=== PATIENT | female | born 1970 | race Caucasian/White ===

== ENCOUNTER 2018-01-24 14:42 | Inpatient (IN) ==
[2018-01-24 20:41] LABS: Baso # (Auto) 0.1 th/mm3 (0.0-0.2); Baso % (Auto) 0.5 % (0.0-2.0); Eos # (Auto) 0.1 th/mm3 (0.0-0.4); Hematocrit 48.7 % (35.0-46.0); Hemoglobin 16.5 gm/dL (11.6-15.3); Lymph % (Auto) 27.4 % (9.0-44.0); Mean Corpuscular HGB Conc 33.8 % (32.0-36.0); Mean Corpuscular Hemoglobin 31.8 pg (27.0-34.0); Mean Corpuscular Volume 93.9 fL (80.0-100.0); Mean Platelet Volume 7.8 fL (7.0-11.0); Mono # (Auto) 0.8 th/mm3 (0.0-0.9); Mono % (Auto) 7.2 % (0.0-8.0); Neut # (Auto) 6.9 th/mm3 (1.8-7.7); Neut % (Auto) 63.9 % (16.0-70.0); Platelet Count 339 th/mm3 (150-450); Red Blood Count 5.19 mil/mm3 (4.00-5.30); Red Cell Distribution Width 12.3 % (11.6-17.2); White Blood Count 10.8 th/mm3 (4.0-11.0)
--- NOTE | 2018-01-24 20:48 | ED ---
HPI General Chief complaint: Psychiatric Symptoms Stated complaint: psych eval Time Seen by Provider: 01/24/18 19:55 History of Present Illness HPI narrative: Patient is a 47 year old female presents to the ER for evaluation by psychiatrist. She is accompanied by her friend who states that she has been getting worse over the past few weeks. She has been seen by her psychiatrist and started on new SSRI and still has severe depression. Per her friend, she doesn't eat, she's lost 20 over the past few weeks. She apparently has not been functioning well at all. Her primary psychiatrist has also apparently recommended an inpatient psychiatric evaluation and she declined. Her friend urged her to come into the hospital after calling their psychiatrist today who made the recommendation. She denies any physical complaints, denies any CP/SOB/ABD pain/N/V/D/C/Fever/Chest pain. Related Data Home Medications Medication Instructions Recorded Confirmed alprazolam 0.25 mg PO BID 01/24/18 01/24/18 difluprednate [Durezol] 1 drp OPHTHALMIC (EYE) BID 01/24/18 01/24/18 doxycycline hyclate 100 mg PO BID 01/24/18 01/24/18 quetiapine See Label Instructions .ROUTE 01/24/18 01/24/18 .COMPLEX Allergies Allergy/AdvReac Type Severity Reaction Status Date / Time penicillin G Allergy Unknown Unverified 12/25/16 15:03 Review of Systems ROS: all other systems reviewed are negative [facility] Social History Social History Substance History: Unable to Obtain Smoking Status: Light tobacco smoker Tobacco Type: Cigarettes How Often Do You Have a Drink Containing Alcohol: Monthly or less Recent Travel in [facility] within the Last 8 Weeks: No Recent Out of Country Travel within the Last 8 Weeks: No Exam Narrative Exam Narrative: GENERAL: Well-developed thin female weepy. SKIN: Focused skin assessment warm/dry. HEAD: Atraumatic. Normocephalic. EYES: Pupils equal and round. No scleral icterus. Mild injection of the left sclera. Right sclera are clear. PERRLA ENT: No nasal bleeding or discharge. Mucous membranes pink and moist. NECK: Trachea midline. No JVD. CARDIOVASCULAR: Regular rate and rhythm. No murmur appreciated. RESPIRATORY: No accessory muscle use. Clear to auscultation. Breath sounds equal bilaterally. GASTROINTESTINAL: Abdomen soft, non-tender, nondistended. Hepatic and splenic margins not palpable. MUSCULOSKELETAL: No obvious deformities. No clubbing. No cyanosis. No edema. NEUROLOGICAL: Awake and alert. No obvious cranial nerve deficits. Motor grossly within normal limits. Normal speech. PSYCHIATRIC: Patient is a fair amount of insight, she appears depressed affect and depressed mood. Denies suicidal homicidal ideation currently but states she had thought about it in the past. She is fairly withdrawn as well, cries during the history. Course Initial Documented Vital Signs Temperature 98.1 F 01/24/18 14:45 Pulse Rate 99 H 01/24/18 14:45 Respiratory Rate 16 01/24/18 14:45 Blood Pressure 150/70 H 01/24/18 14:45 Pulse Oximetry 99 01/24/18 14:45 Last Documented Vital Signs Temperature 98.1 F 01/24/18 14:45 Pulse Rate 82 01/24/18 19:18 Respiratory Rate 18 01/24/18 19:18 Blood Pressure 154/79 H 01/24/18 19:18 Pulse Oximetry 99 01/24/18 19:18 Medical Decision Making MDM Narrative Medical decision making narrative: Patient room in the emergency department, her friend is quite worried about her, mom is arrived as well and the patient friend states that they do not get along well together. The patient asks if she can go home with her mother. Psychiatric labs have been drawn and sent. Currently patient is on voluntary status, will continue to reassess her throughout the night as she is always already stating that she wants to go home. I am concerned about this patient's well-being as withdrawn as she has been. She is depressed bordering on psychotic features as well. I have spoken with Kanchan for a psychiatric screening as well for this patient. As an aside the patient does have erythematous left conjunctival, she states she inadvertently splashed herself with hydrogen peroxide in the eye, she does have eyedrops that she has been taking for this. Durezol After labs returned I do not see any medical reason for the patient's symptoms, there is no other lab abnormality that needs emergent workup. She is medically cleared for psychiatric evaluation. Working closely with Rah, she is contacted psychiatrist senior environmental consultant who agrees patient needs admission his place admission orders. This was relayed to the patient, she quickly changes the subject. I do believe that she is unable and unwilling to make her own decisions at this time. I therefore placed her under Chance act. This appears to be depression with psychotic features. Medical Screen Exam Complete: Yes Emergency Medical Condition: Yes Lab Data Result diagrams: 01/24/18 20:30 01/24/18 20:30 POC Results POC Urine Results Negative Lab Results 01/24/18 01/24/18 01/24/18 Range/Units 20:30 20:30 21:24 WBC 10.8 (4.0-11.0) th/mm3 RBC 5.19 (4.00-5.30) mil/mm3 Hgb 16.5 H (11.6-15.3) gm/dL Hct 48.7 H (35.0-46.0) % MCV 93.9 (80.0-100.0) fL MCH 31.8 (27.0-34.0) pg MCHC 33.8 (32.0-36.0) % RDW 12.3 (11.6-17.2) % Plt Count 339 (150-450) th/mm3 MPV 7.8 (7.0-11.0) fL Neut % (Auto) 63.9 (16.0-70.0) % Lymph % (Auto) 27.4 (9.0-44.0) % [place] % (Auto) 7.2 (0.0-8.0) % Eos % (Auto) 1.0 (0.0-4.0) % Baso % (Auto) 0.5 (0.0-2.0) % Neut # (Auto) 6.9 (1.8-7.7) th/mm3 Lymph # (Auto) 3.0 (1.0-4.8) th/mm3 [place] # (Auto) 0.8 (0.0-0.9) th/mm3 Eos # (Auto) 0.1 (0.0-0.4) th/mm3 Baso # (Auto) 0.1 (0.0-0.2) th/mm3 WBC Differential . Differential Comment Auto diff final Sodium 139 (136-145) meq/L Potassium 3.9 (3.5-5.1) meq/L Chloride 104 (98-107) meq/L Carbon Dioxide 26.5 (21.0-32.0) meq/L Anion Gap 9 (5-15) meq/L BUN 10 (7-18) mg/dL Creatinine 0.85 (0.50-1.00) mg/dL Estimated GFR 72 L (>89) mL/min Random Glucose 106 (74-106) mg/dL Calcium 9.5 (8.5-10.1) mg/dL Total Bilirubin 0.4 (0.2-1.0) mg/dL AST 10 L (15-37) U/L ALT 28 (10-53) U/L Alkaline Phosphatase 65 (45-117) U/L Total Protein 8.2 (6.4-8.2) g/dL Albumin 4.5 (3.4-5.0) g/dL TSH 1.280 (0.358-3.740) uIU/mL Urine Opiates Screen Neg (Neg) Ur Barbiturates Screen Neg (Neg) Ur Amphetamines Screen Neg (Neg) U Benzodiazepines Scrn Pos H (Neg) Urine Cocaine Screen Neg (Neg) U Cannabinoids Screen Neg (Neg) Serum Alcohol Less than 3 (0-5) mg/dL Discharge Plan Discharge Disposition Patient Disposition: 30 Still Patient Discharge Details Diagnosis: Severe major depression with psychotic features Physicians Team ED Provider: Ethan Beasley Primary Care Provider: Ruben Bianchi Attending Provider: Gama Currie Status ED Status: Left Department Discharge Information Discharge Date/Time: 01/25/18 00:57
[2018-01-24 21:14] LABS: Albumin 4.5 g/dL (3.4-5.0); Anion Gap 9 meq/L (5-15); Aspartate Aminotransferase 10 U/L (15-37); Blood Urea Nitrogen 10 mg/dL (7-18); Calcium 9.5 mg/dL (8.5-10.1); Carbon Dioxide 26.5 meq/L (21.0-32.0); Chloride 104 meq/L (98-107); Glomerular Filtration Rate 72 mL/min (>89); Glucose,Random 106 mg/dL (74-106); Potassium 3.9 meq/L (3.5-5.1); Sodium 139 meq/L (136-145)
[2018-01-24 21:15] LABS: Alanine Aminotransferase 28 U/L (10-53)
[2018-01-24 21:24] LABS: Alkaline Phosphatase 65 U/L (45-117); Total Protein 8.2 g/dL (6.4-8.2)
[2018-01-24] MEDS ORDERED: LORazepam 1 MG Tablet PO ONE (21:37)
[2018-01-24 21:43] LABS: Amphetamine Screen,Urine Neg (Neg); Barbiturate Screen,Urine Neg (Neg); Cannabinoid Screen,Urine Neg (Neg); Cocaine Screen,Urine Neg (Neg)
[2018-01-24 21:54] LABS: Opiate Screen,Urine Neg (Neg)
[2018-01-25] MEDS ORDERED: Aluminum/Magnesium/Simethacone Susp 30 ML UDC PO PRN (01:46)
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
--- NOTE | 2018-01-25 15:40 | P.CONIM ---
History of Present Illness Requesting Physician: Gama Currie Reason for Consult: "medical management for eye issues. Patient instilled peroxide in both eyes Primary Care Provider: Ruben Bianchi MD History of Present Illness: This is a 47 year old female patient with a past medical history which includes anxiety/depression, fatigue, headaches, rheumatoid arthritis. Patient is currently in inpatient psychiatric center we have been consulted to assist with "medical management for eye issues. Patient instilled peroxide in both eyes." Patient does endorse that she accidentally splashed a small amount of OTC strength peroxide into both eyes approximately 1 week ago. Patient reports that she has seen outpatient optometry/ophthalmology Dr. Banda and was prescribed eyedrops but is unsure exactly which eyedrops. Patient reports her vision is, "about the same," she is able to read with her glasses on. Patient denies blurred vision, double vision or changes in vision since the incident. Patient denies fevers chills nausea vomiting diarrhea constipation shortness of breath or chest pain. Past medical history: anxiety/depression, fatigue, headaches, rheumatoid arthritis Past surgical history: Cervical surgery including LEEP and colposcopy 5, surgical repair of the foot, tonsillectomy and wrist surgery. 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 but quit, unable to tell exactly when she quit years ago Rare EtOH use Family history: Diabetes and memory loss Review of Systems All other systems reviewed negative except as stated in HPI [facility] - History History Provided By: Patient, Medical Record - Tobacco History Second Hand Smoke Exposure: No Tobacco Use In Past 30 Days: Yes Smoking Status: Light tobacco smoker Tobacco Type: Cigarettes - Alcohol History How Often Do You Have a Drink Containing Alcohol: Monthly or less - Substance Use History Substance History: No History of Abuse - Travel History Recent Travel in the [place] Within the Last 8 Weeks: No Recent Travel Out of the Country Within the Last 8 Weeks: No - Immunization History Tetanus Immunization: <5 Years Hx Influenza Vaccine This Season: No Medications and Allergies Allergies Allergy/AdvReac Type Severity Reaction Status Date / Time penicillin G Allergy Unknown Unverified 12/25/16 15:03 Active Medications: Active Medications Al Hydrox/Mg Hydrox/Simethicone (Mag-Al Plus Susp Liq) 30 ml PO Q6H PRN PRN Reason: DYSPEPSIA Al Hydroxide/Mg Hydroxide (Milk Of Magnesia Liq) 30 ml PO Q12H PRN PRN Reason: Mild Constipation Diphenhydramine HCl (Benadryl) 50 mg PO HS PRN PRN Reason: INSOMNIA Diphenhydramine HCl (Benadryl Inj) 50 mg IM HS PRN PRN Reason: INSOMNIA Doxycycline Hyclate (Vibratab) 100 mg PO BID [facility] Last Admin: 01/25/18 11:29 Dose: 100 mg Escitalopram Oxalate (Lexapro) 10 mg PO DAILY [facility] Hydroxyzine HCl (Atarax) 50 mg PO Q6H PRN PRN Reason: ANXIETY Ibuprofen (Motrin) 600 mg PO Q6H PRN PRN Reason: PAIN SCALE 1 TO 10 Patient Own Med- Difluprednate ( Durezol) Opth Drops 0.05% 0 each EACH EYE BID [facility] Exam Vital signs: Vital Signs 01/24/18 19:18 01/25/18 01:17 01/25/18 06:00 Temperature 97.8 F 97.9 F Pulse Rate 82 77 80 Respiratory Rate 18 20 22 Blood Pressure 154/79 H 97/52 L 102/52 L Pulse Oximetry 99 100 97 Intake & Output 01/24/18 01/25/18 01/25/18 18:59 06:59 18:59 Weight 55.338 kg 54.8 kg Other: Weight On Admission 54.8 kg Narrative: GENERAL: This is a well-nourished, well-developed patient, 47-year-old female patient EYES: Small subconjunctival hematoma noted left lower conjunctiva. No drainage or erythema noted to either eye CARDIOVASCULAR: Regular rate and rhythm RESPIRATORY: Clear to auscultation. Breath sounds equal bilaterally. GASTROINTESTINAL: Abdomen soft, non-tender, nondistended. Normal active bowel sounds MUSCULOSKELETAL: Extremities without clubbing, cyanosis, or edema. NEURO: Alert & Oriented. Moves all ext x4 Results - Labs CBC & Chem 7: 01/24/18 20:30 01/24/18 20:30 Labs: Laboratory Results - last 24 hr 01/24/18 01/24/18 01/24/18 20:30 20:30 21:24 WBC 10.8 RBC 5.19 Hgb 16.5 H Hct 48.7 H MCV 93.9 MCH 31.8 MCHC 33.8 RDW 12.3 Plt Count 339 MPV 7.8 Neut % (Auto) 63.9 Lymph % (Auto) 27.4 [place] % (Auto) 7.2 Eos % (Auto) 1.0 Baso % (Auto) 0.5 Neut # (Auto) 6.9 Lymph # (Auto) 3.0 [place] # (Auto) 0.8 Eos # (Auto) 0.1 Baso # (Auto) 0.1 WBC Differential . Differential Comment Auto diff final Sodium 139 Potassium 3.9 Chloride 104 Carbon Dioxide 26.5 Anion Gap 9 BUN 10 Creatinine 0.85 Estimated GFR 72 L Random Glucose 106 Calcium 9.5 Total Bilirubin 0.4 AST 10 L ALT 28 Alkaline Phosphatase 65 Total Protein 8.2 Albumin 4.5 TSH 1.280 Urine Opiates Screen Neg Ur Barbiturates Screen Neg Ur Amphetamines Screen Neg U Benzodiazepines Scrn Pos H Urine Cocaine Screen Neg U Cannabinoids Screen Neg Serum Alcohol Less than 3 Assessment and Plan - Assessment (1) Severe major depression with psychotic features Code(s): F32.3 - Major depressive disorder, single episode, severe with psychotic features Status: Acute Plan: Major depression with psychotic features management per psychiatric team History of peroxide exposure to bilateral eyes Patient does endorse that she accidentally splashed OTC strength peroxide into both eyes approximately 1 week ago. Patient reports that she has seen outpatient optometry/ophthalmology Dr. Banda and was prescribed eyedrops but is unsure exactly which eyedrops. Patient reports her vision is, "about the same, " she is able to read with her glasses on. Patient denies blurred vision, double vision or changes in vision since the incident. Patient unreliable nursing to please obtain records from outpatient optometry/ ophthalmology We will add Refresh Tears as needed for comfort Patient needs to follow-up with outpatient optometry/ophthalmology upon discharge Rheumatoid arthritis Patient follows with Dr. Caba outpatient does not take any medications for her RA follow-up outpatient rheumatology after discharge - Attending Attestation Patient examined. Assessment and plan formulated with Demetria BRUCE I agree with the above.
[2018-01-25] MEDS ORDERED: Carboxymethylcellulose 0.5% Opth Drops 15 ML Bottle EACH EYE PRN (21:00)
[2018-01-25] MEDS: DIFLUPREDNATE OPTH EACH EYE SCH (21:19)
[2018-01-25] MEDS: Escitalopram 10 MG Tablet PO SCH (21:31)
[2018-01-26] MEDS: Escitalopram 10 MG Tablet PO SCH (09:02)
[2018-01-26] MEDS: DIFLUPREDNATE OPTH EACH EYE SCH (09:05)
--- NOTE | 2018-01-26 14:18 | P.PNPSY ---
Subjective Chief Complaint: Severe depression with psychotic features; anxiety Remarks: Reviewed electronic medical records and discussed case with staff. Follow-up was conducted in dayroom with YAMILET Chapin. Patient is extremely anxious. She asked me if she needed a curing oven tender present to be able to have a conversation. She is preoccupied with her two sons (16 and 18 years of age). She is worried about missing a graduation. I secured her cell phone so that she could obtain her son' s cell number so that she can call him. Nursing staff report that patient has a very poor appetite. I encouraged her to eat and take in fluids and she agreed . She denies any thoughts of self harm. She is participating in groups and activities on the unit. Review of Systems All other systems reviewed negative except as stated in HPI Mental Status Examination Appearance: Appropriate Consciousness: Alert Orientation: x4 Motor Activity: Normal gait Speech: Hesitant, Slow Language: Adequate Fund of Knowledge: Adequate Attention and Concentration: Adequate Memory: Impaired Mood: Sad Affect: Sad Thought Process & Associations: Circumstantial Thought Content: Preoccupations Hallucination Type: None Delusion Type: None Suicidal Ideation: No (Denies today but had them in admission) Suicidal Plan: No Suicidal Intention: No Homicidal Ideation: No Homicidal Plan: No Homicidal Intention: No Insight: Fair Judgment: Impulsive Assessment and Plan - Assessment (1) Current severe episode of major depressive disorder with psychotic features Code(s): F32.3 - Major depressive disorder, single episode, severe with psychotic features Status: Acute - Plan Plan: Estimated LOS: [] days Patient is stable. Started on Lexapro. Will see psychiatrist on Saturday. Continue current plan of care. Justification for Continued Inpatient Stay: Moving patient to a less restrictive environment may result in her decompensation. Request Healthcare Surrogate/Guardian Advocate?: No
[2018-01-27] MEDS: Escitalopram 10 MG Tablet PO SCH (09:22)
--- NOTE | 2018-01-27 18:41 | P.PNPSY ---
Subjective Chief Complaint: Severe depression with psychotic features; anxiety Remarks: Patient seen for follow up; chart reviewed. Discussion with nursing staff reported that patient noted to be somewhat anxious about why discharge. Patient was found in blade on unit noted B, cooperative. Patient with history of depression, PTSD with current admission under Chance act for suicidal ideation in the context of recently having lost in her family. Patient reports that she had been feeling upset that she had lost family members as well as her children did not elaborate as to why. Patient admits to having suicidal ideation which her friend had brought her to the hospital for evaluation. Patient states that her friend brought her to the hospital she was not feeling like herself, noted to have multiple varied complaints about the unit some disorganization and preservative on having certain items such as her belongings , cell phone, condition and for hair. Patient reports being worried about being able to make payments online for her apartment and her children cell phone service. Patient denies any suicide ideations at this time denies any perceptional services but noted to be somewhat disorganized during interview. Patient was reported having poor sleep less evening. Review of Systems All other systems reviewed negative except as stated in HPI Mental Status Examination Appearance: Appropriate Consciousness: Alert Orientation: x4 Motor Activity: Normal gait Speech: Hesitant, Slow Language: Adequate Fund of Knowledge: Adequate Attention and Concentration: Adequate Memory: Impaired Mood: Sad Affect: Anxious Thought Process & Associations: Circumstantial, Disorganized (At times) Thought Content: Preoccupations Hallucination Type: None Delusion Type: None Suicidal Ideation: No (Denies today but had them in admission) Suicidal Plan: No Suicidal Intention: No Homicidal Ideation: No Homicidal Plan: No Homicidal Intention: No Insight: Fair Judgment: Impulsive Assessment and Plan - Assessment (1) Severe major depression with psychotic features Code(s): F32.3 - Major depressive disorder, single episode, severe with psychotic features Status: Acute - Plan Plan: Patient this time noted to be minimizing recent symptoms, not forthcoming to her psychosocial circumstances which contributed to her depression and suicidal ideation recently. Will change diphenhydramine to scheduled to assist with sleep disturbance. We will continue rest of medications. We will continue to monitor mood and behavior. Discharge planning in progress. Justification for Continued Inpatient Stay: At risk of further decompensation at lower level of care. Request Healthcare Surrogate/Guardian Advocate?: No
[2018-01-27] MEDS: Ibuprofen 600 MG Tablet PO PRN (20:37)
[2018-01-28 05:48] VITALS: RESP 17
[2018-01-28] MEDS: Escitalopram 10 MG Tablet PO SCH (08:46)
[2018-01-28] MEDS ORDERED: traZODone 50 MG Tablet PO SCH (21:00)
--- NOTE | 2018-01-28 23:47 | P.PNPSY ---
Subjective Chief Complaint: Severe depression with psychotic features; anxiety Remarks: Patient seen for follow up; chart reviewed. Discussion with nursing staff reported patient noted to be discharge focused. Patient was found family on unit noted B, cooperative. Patient states that she had difficulty sleeping last evening despite taking the diphenhydramine which had little effect. Patient agrees to starting trazodone 50 mg p.o. at bedtime for sleep disturbance. Patient states that she is feeling better, wanting to continue her treatment outpatient and denying any suicide ideations at this time. Patient continues to be elusive about her current circumstances which have led to her admission stating that she is worried about her bills and being able to pay for her apartment and states that she is not able to lying her mom for support she had recent discord with her. She states that her friend Abigail may be supportive at discharge. Patient noted to be jumping from topic to topic during interview with some difficulty maintaining focus on current subject. Review of Systems All other systems reviewed negative except as stated in HPI Mental Status Examination Appearance: Appropriate Consciousness: Alert Orientation: x4 Motor Activity: Normal gait Speech: Hesitant, Slow Language: Adequate Fund of Knowledge: Adequate Attention and Concentration: Adequate Memory: Impaired Mood: Sad, Other ("fine") Affect: Blunt Thought Process & Associations: Circumstantial, Disorganized (at times) Thought Content: Preoccupations Hallucination Type: None Delusion Type: None Suicidal Ideation: No (Denies today but had them in admission) Suicidal Plan: No Suicidal Intention: No Homicidal Ideation: No Homicidal Plan: No Homicidal Intention: No Insight: Fair Judgment: Impulsive Assessment and Plan - Assessment (1) Severe major depression with psychotic features Code(s): F32.3 - Major depressive disorder, single episode, severe with psychotic features Status: Acute - Plan Plan: Patient this time denying depressed mood denying suicide ideations, is noted to have difficulty with maintaining train of thought, noticing having flight ideas at times, continues to have sleep disturbance. We will discontinue diphenhydramine and trazodone 50 mg p.o. at bedtime. Continue aggressive treatment. We will continue to monitor mood and behavior. Discharge planning in progress. Justification for Continued Inpatient Stay: At risk of further decompensation at lower level of care. Request Healthcare Surrogate/Guardian Advocate?: No
[2018-01-29 07:54] VITALS: BP 129/65; PULSE 80; TEMP 98.7; O2SAT 98
[2018-01-29] MEDS: Escitalopram 10 MG Tablet PO SCH (08:35)
[2018-01-29] MEDS: Ibuprofen 600 MG Tablet PO PRN (08:36)
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
== END 2018-01-29 18:45 | disposition home or self-care (01) ==
LOC: NEPD 14:42 → NEDA 22:29 → H270 01-25 01:14 → H260 01-25 15:00
PROVIDERS: ADMIT Student in an Organized Health Care Education/Training Program; ATTEND Student in an Organized Health Care Education/Training Program